=== PATIENT | female | born 1960 | race Caucasian/White ===

== ENCOUNTER → 2019-08-02 | Outpatient (CLI) | payer OTHER ==
--- NOTE | 2019-08-02 12:23 | Diagnostic Imaging Report ---
INDICATION: Fall and neck pain. TIME OF EXAM: 11:44 a.m. FINDINGS: Three views of the cervical spine were obtained. There is minimal anterolisthesis of C4 on C5 with retrolisthesis of C5 on C6. Severe degenerative disc disease at C5-C6 level is noted. There is disc space narrowing and marginal spurring. Prevertebral tissues are within normal limits. Odontoid appears to be intact. IMPRESSION: Cervical spondylosis and listhesis. No acute bony abnormality is detected. Dictated by: Dictated on workstation # [id number]
== END ==
LOC: RAD FS 11:27
PROVIDERS: ATTEND Family Medicine
DX: M47.812 Spondylosis without myelopathy or radiculopathy, cervical region (principal); M43.12 Spondylolisthesis, cervical region
CPT/HCPCS: 72040

== ENCOUNTER → 2021-11-04 | Outpatient (CLI) | payer SELFPAY ==
--- NOTE | 2021-11-04 11:43 | Diagnostic Imaging Report ---
INDICATION: Left-sided rib pain. FINDINGS: 5 views. PA chest shows lungs to be well aerated and clear. No pneumothorax or pleural effusion. The left ribs show no evidence of fracture. IMPRESSION: Normal PA chest and left ribs. Dictated by: Dictated on workstation # [id number]
== END ==
LOC: RAD FS 09:45
PROVIDERS: ATTEND Nurse Practitioner Family
DX: R07.81 Pleurodynia (principal); R06.02 Shortness of breath
CPT/HCPCS: 71101

== ENCOUNTER 2022-06-16 12:56 | Emergency (ER) | payer SELFPAY ==
[~2022-06-16] VITALS: Ht 160 cm; Wt 84.3 kg
--- NOTE | 2022-06-16 13:20 | ED Upper Extremity ---
General Chief Complaint: Upper Extremity Stated Complaint: FALL/RIGHT SHOULDER INJURY Nursing Triage Note: PT AMB TO RM 5 WITH COMPLAINT OF RIGHT SHOULDER INJURY. PT WAS SEEN AT [facility] IN [facility] AND HAD XRAYS. PT BROKE RIGHT SHOULDER. PT IS CONCERNED ABOUT HER RIBS, SINCE SHE IS HAVING INCREASING PAIN AND SOA. Source: patient Exam Limitations: no limitations History of Present Illness Date Seen by Provider: Jun 16, 2022 Time Seen by Provider: 13:08 Initial Comments This is a 62 yo female who presented to the ER via POV with c/o right shoulder pain after same level fall in her yard. Was walking her dog and fell to the right on grassy ground. No injury to head or neck. No LOC. Was seen at [facility] walk in and x-ray showed fracture of right proximal humerus. Sent to ER. Nothing for pain prior to arrival. No numbness, tingling. Full ROM fingers on right hand. Also has some right rib pain. Allergies and Home Medications Allergies Coded Allergies: No Known Drug Allergies (Unverified , 06/16/22) Patient Home Medication List Home Medication List Reviewed: Yes Review of Systems Constitutional: see HPI Past Dtobupn-Jwbroe-Gcjyev Hx Patient Social History Tobacco Use?: No Use of E-Cig and/or Vaping dev: No Substance use?: No Alcohol Use?: No Pt feels they are or have been: No Physical Exam Vital Signs Vital Signs - First Documented 06/16/22 13:00 Temp 36.6 Pulse 81 Resp 20 B/P (MAP) 123/98 (106) Pulse Ox 98 O2 Delivery Room Air Capillary Refill : Less Than 3 Seconds Height, Weight, BMI Height: '" Weight: lbs. oz. kg; 32.00 BMI Method: General Appearance: WD/WN, no apparent distress HEENT: normal ENT inspection, pharynx normal Neck: full range of motion, normal inspection Cardiovascular: regular rate, rhythm, no murmur Respiratory: lungs clear, normal breath sounds, no respiratory distress, no accessory muscle use, other (right 4-5 lateral rib tenderness ) Gastrointestinal: normal bowel sounds, non tender, soft Back: normal inspection, no vertebral tenderness Shoulder: bone tenderness (right), limited ROM (right ), pain (right ), soft tissue tenderness, swelling Elbow/Forearm: normal inspection, non-tender Wrist: Yes normal inspection, Yes non-tender, Yes no evidence of injury, Yes normal ROM Neurologic/Tendon: normal sensation, normal motor functions, normal tendon functions Neurologic/Psychiatric: no motor/sensory deficits, alert, normal mood/affect, oriented x 3 Skin: normal color, warm/dry Progress/Results/Core Measures Results/Orders My Orders Medications Given in ED Vital Signs/I&O Blood Pressure Mean: 106 Progress Progress Note : Progress Note Given Ibuprofen per patient request, refused narcotic pain medication. Placed in splint. Wants to follow up outpatient with Dr. Graham. Discharge POC reviewed and she is agreeable with plan. Neurovascular intact pre and post application of splint. Diagnostic Imaging Diagonstic Imaging: Xray Comments [facility], [place] NAME: DONAVON PEARSON [employer] REC#: [id number] PT STATUS: DEP ER : 1960 PHYSICIAN: VIET NELSON APRN ADMIT DATE: 06/16/22/ER Signed Date of Exam:06/16/22 RIBS/UNILATERAL WITH CHEST HISTORY: Right chest and rib pain with shortness of air COMPARISON: 11/04/2021 TECHNIQUE: Frontal view of the chest. Frontal and oblique views of the right ribs. FINDINGS: Lung volumes are normal. No consolidation is seen. There is no pleural effusion or pneumothorax. The cardiac silhouette is normal in size. There is a minimally displaced fracture of the anterior right 5th rib. There is a comminuted at least three-part fracture of the proximal right humerus. IMPRESSION: 1. Minimally displaced fracture of the anterior right 5th rib. 2. Comminuted fracture of the proximal right humerus. Dictated by: Dictated on workstation # [id number] Dict: 06/16/22 1359 Trans: 06/16/22 [address] [facility] [id number] Interpreted by: HUA SHANE MD Electronically signed by: HUA SHANE MD 06/16/22 1657 Departure Communication (Admissions) Time/Spoke to Consulting Phy: 14:53 Dr. Lee, place in splint and outpatient follow up. Impression Primary Impression: Comminuted fracture of the proximal right humerus Additional Impressions: Fall Right rib fracture Disposition: 01 HOME, SELF-CARE Condition: Stable Departure-Patient Inst. Decision time for Depature: 15:13 Referrals: ANNE MARIE SUAREZ APRN (PCP) Primary Care Physician [facility] (Family) Primary Care Physician EMELIA GRAHAM MD Patient Instructions: Shoulder Fracture (DC) Add. Discharge Instructions: Plan: 1. Discharge home. 2. Follow up with Ortho provider of choice next week. You can call Dr. Graham office to schedule. 3. Keep affected site elevated above your heart over the next 72 hours to reduce swelling and pain. This is when the most swelling will occur. 4. Keep sling dry. May shower, keep arm supported when showering. 5. Ice 20 minutes at a time for swelling and pain. 7. Wiggle fingers often to prevent swelling. 8. If extremity becomes numb, cold, more painful, blanched or discolored or excessively swollen, contact your physician or return to the ER. 9. May take Tylenol or Ibuprofen as needed for pain per package. 10. Return to ER for any new, concerning, or worsening symptoms. All discharge instructions reviewed with patient and/or family. Voiced understanding. Copy Copies To 1: EMELIA GRAHAM MD, STORMY D APRN Jun 16, 2022 13:20
--- NOTE | 2022-06-16 14:04 | Diagnostic Imaging Report ---
HISTORY: Right chest and rib pain with shortness of air COMPARISON: 11/04/2021 TECHNIQUE: Frontal view of the chest. Frontal and oblique views of the right ribs. FINDINGS: Lung volumes are normal. No consolidation is seen. There is no pleural effusion or pneumothorax. The cardiac silhouette is normal in size. There is a minimally displaced fracture of the anterior right 5th rib. There is a comminuted at least three-part fracture of the proximal right humerus. IMPRESSION: 1. Minimally displaced fracture of the anterior right 5th rib. 2. Comminuted fracture of the proximal right humerus. Dictated by: Dictated on workstation # [id number]
[2022-06-16] MEDS ORDERED: KETOROLAC 60 MG/2 ML VIAL IM ONE (14:30)
[2022-06-16 15:25] VITALS: BP 120/97
== END 2022-06-16 15:25 | disposition home or self-care (01) ==
LOC: EDUNIT# 12:56 → ER 12:58
DX: S42.201A Unspecified fracture of upper end of right humerus, initial encounter for closed fracture (principal); S22.31XA Fracture of one rib, right side, initial encounter for closed fracture; W18.30XA Fall on same level, unspecified, initial encounter; Y93.01 Activity, walking, marching and hiking; Y92.096 Garden or yard of other non-institutional residence as the place of occurrence of the external cause
CPT/HCPCS: 71101; 96372; 99283; A4565

== ENCOUNTER 2023-01-26 11:18 | Emergency (ER) | payer SELFPAY ==
[~2023-01-26] VITALS: Ht 165.1 cm; Wt 84.0 kg
[2023-01-26 11:28] VITALS: BP 160/89
--- NOTE | 2023-01-26 11:34 | ED Cardiac General ---
History of Present Illness General Chief Complaint: Cardiac/General Problems Stated Complaint: ELEV BP History of Present Illness Date Seen by Provider: January 26, 2023 Time Seen by Provider: 11:29 Initial Comments 62-year-old female presents with headaches have been going on for a while along with concerns with elevated blood pressure. She reports that she her blood pressure been running in the 160s and occasionally the diastolic number was getting up into the 100s to 120s. She reports however the headache has been going on and off for probably 7 months since she fell and broke her shoulder since that she has felt she has had "neck and head problems. She reports that she has had a headache for "2-1/2 weeks" patient went to urgent care and was sent here for further evaluation Allergies and Home Medications Allergies Coded Allergies: No Known Drug Allergies (Unverified , 06/16/22) Patient Home Medication List Home Medication List Reviewed: Yes Lisinopril (Lisinopril) 10 Mg Tablet, 10 MG PO DAILY Prescribed by: MARY MINA on 01/26/23 1246 Review of Systems Review of Systems Constitutional: No chills, No fever EENTM: No Blurred Vision, No Eye Pain Respiratory: Denies Cough Gastrointestinal: No Symptoms Reported; Denies Abdominal Pain Genitourinary: No Symptoms Reported Musculoskeletal: see HPI Skin: no symptoms reported Psychiatric/Neurological: See HPI Endocrine: No Symptoms Reported Hematologic/Lymphatic: No Symptoms Reported Physical Exam Vital Signs Vital Signs - First Documented 01/26/23 11:28 Temp 35.6 Pulse 101 Resp 16 B/P (MAP) 160/89 (112) Pulse Ox 99 O2 Delivery Room Air Capillary Refill : Height, Weight, BMI Height: '" Weight: lbs. oz. kg; 32.00 BMI Method: General Appearance: No Apparent Distress, WD/WN Neck: Supple Respiratory: Lungs Clear, Normal Breath Sounds Cardiovascular: Regular Rate, Rhythm, No Edema Gastrointestinal: Non Tender, Soft Extremity: Normal Capillary Refill, Normal Inspection, Normal Range of Motion Neurologic/Psychiatric: Alert, Oriented x3 Skin: Normal Color, Warm/Dry Progress/Results/Core Measures Results/Orders Lab Results Laboratory Tests Test 01/26/23 11:45 Range/Units White Blood Count 10.4 4.3-11.0 10^3/uL Red Blood Count 5.04 3.80-5.11 10^6/uL Hemoglobin 15.2 11.5-16.0 g/dL Hematocrit 45 35-52 % Mean Corpuscular Volume 89 80-99 fL Mean Corpuscular Hemoglobin 30 25-34 pg Mean Corpuscular Hemoglobin Concent 34 32-36 g/dL Red Cell Distribution Width 15.6 H 10.0-14.5 % Platelet Count 242 130-400 10^3/uL Mean Platelet Volume 11.5 9.0-12.2 fL Immature Granulocyte % (Auto) 0 % Neutrophils (%) (Auto) 73 42-75 % Lymphocytes (%) (Auto) 21 12-44 % Monocytes (%) (Auto) 4 0-12 % Eosinophils (%) (Auto) 1 0-10 % Basophils (%) (Auto) 1 0-10 % Neutrophils # (Auto) 7.6 1.8-7.8 10^3/uL Lymphocytes # (Auto) 2.2 1.0-4.0 10^3/uL Monocytes # (Auto) 0.4 0.0-1.0 10^3/uL Eosinophils # (Auto) 0.1 0.0-0.3 10^3/uL Basophils # (Auto) 0.1 0.0-0.1 10^3/uL Immature Granulocyte # (Auto) 0.0 0.0-0.1 10^3/uL Urine Color YELLOW Urine Clarity SL CLOUDY Urine pH 6.0 5-9 Urine Specific [place] 1.020 1.016-1.022 Urine Protein TRACE H NEGATIVE Urine Glucose (UA) NEGATIVE NEGATIVE Urine Ketones 2+ H NEGATIVE Urine Nitrite NEGATIVE NEGATIVE Urine Bilirubin 2+ H NEGATIVE Urine Urobilinogen 1.0 < = 1.0 MG/DL Urine Leukocyte Esterase NEGATIVE NEGATIVE Urine RBC (Auto) TRACE-I H NEGATIVE Urine RBC 0-2 /HPF Urine WBC NONE /HPF Urine Squamous Epithelial Cells 5-10 /HPF Urine Crystals NONE /LPF Urine Bacteria FEW H /HPF Urine Casts NONE /LPF Urine Mucus MODERATE H /LPF Urine Culture Indicated NO Sodium Level 138 135-145 MMOL/L Potassium Level 3.2 L 3.6-5.0 MMOL/L Chloride Level 100 98-107 MMOL/L Carbon Dioxide Level 20 L 21-32 MMOL/L Anion Gap 18 H 5-14 MMOL/L Blood Urea Nitrogen 11 7-18 MG/DL Creatinine 0.72 0.60-1.30 MG/DL Estimat Glomerular Filtration Rate 93 BUN/Creatinine Ratio 15 Glucose Level 109 H 70-105 MG/DL Calcium Level 10.2 H 8.5-10.1 MG/DL Corrected Calcium 8.5-10.1 MG/DL Total Bilirubin 0.7 0.1-1.0 MG/DL Aspartate Amino Transf (AST/SGOT) 14 5-34 U/L Alanine Aminotransferase (ALT/SGPT) 8 0-55 U/L Alkaline Phosphatase 47 40-136 U/L Total Protein 8.1 6.4-8.2 GM/DL Albumin 4.8 H 3.2-4.5 GM/DL Thyroid Stimulating Hormone (TSH) 0.91 0.35-4.94 UIU/ML My Orders Orders - MINA,MARY L DO Cbc With Automated Diff (01/26/23 11:38) Comprehensive Metabolic Panel (01/26/23 11:38) Thyroid Stimulating Hormone (01/26/23 11:38) Ua Culture If Indicated (01/26/23 11:38) Ct Head Wo (01/26/23 11:38) Ekg Tracing (01/26/23 11:38) Vital Signs/I&O 01/26/23 11:28 Temp 35.6 Pulse 101 Resp 16 B/P (MAP) 160/89 (112) Pulse Ox 99 O2 Delivery Room Air Progress Progress Note : Progress Note Patient's diagnostic studies were reviewed and interpreted by me. Patient has slight elevation of her blood pressure 160/80. This has been going on for some time. Patient with no acute physical findings. She reports that she is currently not have any headache or other symptoms. Patient's CT was ordered and reviewed with normal significant findings with found to rotation per radiology report. Patient EKG showed no acute findings. I did start patient on lisinopril and recommend she follow-up with her primary care provider for further outpatient management. She was stable and discharged home Initial ECG Impression Date: January 26, 2023 Initial ECG Impression Time: 11:49 Initial ECG Rate: 90 Initial ECG Rhythm: Normal Sinus Initial ECG Impression: Nonspecific Changes Comment no acute changes, Diagnostic Imaging Diagonstic Imaging: CT Plain Films/CT/US/NM/MRI: head Comments Date of Exam:01/26/23 CT HEAD WO PROCEDURE: CT head without contrast. TECHNIQUE: Multiple contiguous axial images were obtained through the brain without the use of intravenous contrast. Auto Exposure Controls were utilized during the CT exam to meet ALARA standards for radiation dose reduction. INDICATION: Headaches. COMPARISON: None available. FINDINGS: CT of the head demonstrates no evidence of an acute intracranial abnormality. There is no evidence of intracranial hemorrhage. There is no extra-axial fluid collection, mass effect or shift. Redd and white matter differentiation appear preserved. There is no abnormal hypodensity within the basal ganglia. The ventricles are appropriate in size and configuration. There is no evidence of hydrocephalus. The basilar cisterns are patent. The posterior fossa is unremarkable. Mastoids and visualized paranasal sinuses appear clear. Orbital contents are unremarkable. There is no calvarial abnormality. IMPRESSION: 1. No CT evidence of an acute intracranial abnormality. Reviewed: Reviewed by Me, Reviewed/Discussed Departure Impression Primary Impression: High blood pressure Qualified Codes: I10 - Essential (primary) hypertension Disposition: HOME, SELF-CARE Condition: Stable Departure-Patient Inst. Referrals: ANNE MARIE SUAREZ APRN (PCP) Primary Care Physician [facility]/[place] (Family) Primary Care Physician Patient Instructions: High blood pressure in adults, Low Salt Diet, Controlling your blood pressure through lifestyle Add. Discharge Instructions: Please follow-up with your primary care provider in about 10 days for recheck of your blood pressure and labs All discharge instructions reviewed with patient and/or family. Voiced understanding. Scripts Lisinopril (Lisinopril) 10 Mg Tablet 10 MG PO DAILY for 30 Days, #30 TAB Prov: MARY MINA DO 01/26/23 MARY MINA DO January 26, 2023 11:34
[2023-01-26 11:51] LABS: BASOPHILS # (AUTO) 0.1 10^3/uL (0.0-0.1); BASOPHILS % (AUTO) 1 % (0-10); EOSINOPHILS # (AUTO) 0.1 10^3/uL (0.0-0.3); EOSINOPHILS % (AUTO) 1 % (0-10); HEMATOCRIT 45 % (35-52); HEMOGLOBIN 15.2 g/dL (11.5-16.0); LYMPHOCYTES # (AUTO) 2.2 10^3/uL (1.0-4.0); LYMPHOCYTES % (AUTO) 21 % (12-44); MEAN CORPUSCULAR HEMOGLOBIN 30 pg (25-34); MEAN CORPUSCULAR HGB CONC 34 g/dL (32-36); MEAN CORPUSCULAR VOLUME 89 fL (80-99); MEAN PLATELET VOLUME 11.5 fL (9.0-12.2); MONOCYTES # (AUTO) 0.4 10^3/uL (0.0-1.0); MONOCYTES % (AUTO) 4 % (0-12); NEUTROPHILS # (AUTO) 7.6 10^3/uL (1.8-7.8); NEUTROPHILS % (AUTO) 73 % (42-75); PLATELET COUNT 242 10^3/uL (130-400); WHITE BLOOD COUNT 10.4 10^3/uL (4.3-11.0)
[2023-01-26 11:56] LABS: CLARITY,URINE SL CLOUDY; COLOR,URINE YELLOW; GLUCOSE, URINE (UA) NEGATIVE (NEGATIVE); KETONES,URINE 2+ (NEGATIVE); LEUKOCYTE ESTERASE ,URINE NEGATIVE (NEGATIVE); NITRITE,URINE NEGATIVE (NEGATIVE); PROTEIN,URINE TRACE (NEGATIVE)
[2023-01-26 12:07] LABS: BACTERIA,URINE FEW /HPF; RBC,URINE 0-2 /HPF
--- NOTE | 2023-01-26 12:09 | Diagnostic Imaging Report ---
PROCEDURE: CT head without contrast. TECHNIQUE: Multiple contiguous axial images were obtained through the brain without the use of intravenous contrast. Auto Exposure Controls were utilized during the CT exam to meet ALARA standards for radiation dose reduction. INDICATION: Headaches. COMPARISON: None available. FINDINGS: CT of the head demonstrates no evidence of an acute intracranial abnormality. There is no evidence of intracranial hemorrhage. There is no extra-axial fluid collection, mass effect or shift. Redd and white matter differentiation appear preserved. There is no abnormal hypodensity within the basal ganglia. The ventricles are appropriate in size and configuration. There is no evidence of hydrocephalus. The basilar cisterns are patent. The posterior fossa is unremarkable. Mastoids and visualized paranasal sinuses appear clear. Orbital contents are unremarkable. There is no calvarial abnormality. IMPRESSION: 1. No CT evidence of an acute intracranial abnormality. Dictated by: Dictated on workstation # [id number]
[2023-01-26 12:17] LABS: CHLORIDE 100 MMOL/L (98-107); POTASSIUM 3.2 MMOL/L (3.6-5.0); SODIUM 138 MMOL/L (135-145)
[2023-01-26 12:18] LABS: ALANINE AMINOTRANSFERASE 8 U/L (0-55); ALBUMIN 4.8 GM/DL (3.2-4.5); ALKALINE PHOSPHATASE 47 U/L (40-136); BILIRUBIN,TOTAL 0.7 MG/DL (0.1-1.0); BUN/CREATININE RATIO 15; CALCIUM 10.2 MG/DL (8.5-10.1); CARBON DIOXIDE 20 MMOL/L (21-32); CREATININE SERUM 0.72 MG/DL (0.60-1.30); GFR ESTIMATED 93; GLUCOSE 109 MG/DL (70-105); TOTAL PROTEIN 8.1 GM/DL (6.4-8.2)
[2023-01-26] MEDS ORDERED: LISI10TA25 PO (12:46)
[2023-01-26 13:21] LABS: BILIRUBIN,URINE 2+ (NEGATIVE)
== END 2023-01-26 12:49 | disposition home or self-care (01) ==
LOC: EDUNIT# 11:18 → ER FS 11:19
DX: R03.0 Elevated blood-pressure reading, without diagnosis of hypertension (principal)
CPT/HCPCS: 36415; 70450; 80053; 81000; 84443; 85025; 93005